=== PATIENT | male | born 1965 | race Hispanic/Latino ===

== ENCOUNTER → 2022-09-21 | Day surgery (SDC) | payer OTHER ==
[~2022-09-21] MED LIST: Albumin 25% 100 ML ONE; Lidocaine 1% PF 5 ML VIAL ONE; Sodium Bicarbonate 2.5 MEQ/5 ML VIAL ONE
[2022-09-21 11:00] LABS: INR-International Normal Ratio 1.4; PTT 33.3 sec (22.0-33.0); Prothrombin Time 14.9 sec (9.5-12.1)
== END ==
LOC: CSHULT 09:24
PROVIDERS: ATTEND Internal Medicine Gastroenterology
PROC: 0W9G3ZZ Drainage of Peritoneal Cavity, Percutaneous Approach (ICD-10-PCS; principal; 2022-09-21)
DX: R18.8 Other ascites (principal)
CPT/HCPCS: 49083; 82945; 84157; 85610; 85730; 87070; 87205; P9047

== ENCOUNTER 2022-09-27 08:17 | Day surgery (SDC) | payer OTHER ==
[2022-09-24 10:53] VITALS: BMI 28.3
[2022-09-27] MEDS ORDERED: cefTRIAXone (ROCEPHIN) 1 GM VIAL ONE (10:09)
[2022-09-27] MEDS ORDERED: PROPOFOL 40 ML ONE (10:54)
== END 2022-09-27 12:20 | disposition home or self-care (01) ==
LOC: CSHSDC 08:17
PROVIDERS: ATTEND Internal Medicine Gastroenterology
PROC: 0DB78ZX Excision of Stomach, Pylorus, Via Natural or Artificial Opening Endoscopic, Diagnostic (ICD-10-PCS; principal; 2022-09-27)
DX: K76.6 Portal hypertension (principal); K31.89 Other diseases of stomach and duodenum; K25.9 Gastric ulcer, unspecified as acute or chronic, without hemorrhage or perforation; K70.31 Alcoholic cirrhosis of liver with ascites; F10.10 Alcohol abuse, uncomplicated; N18.9 Chronic kidney disease, unspecified; Z79.899 Other long term (current) drug therapy; Y90.9 Presence of alcohol in blood, level not specified
CPT/HCPCS: 88305; J0696; J2704

== ENCOUNTER 2023-08-02 09:33 | Outpatient (CLI) | payer MEDICARE, MEDICAID | END 2023-08-02 09:34 | disposition home or self-care (01) | LOC: CSHWCC 09:33 | PROVIDERS: ATTEND Nurse Practitioner Family | DX: L98.499 Non-pressure chronic ulcer of skin of other sites with unspecified severity (principal); N18.6 End stage renal disease; K74.60 Unspecified cirrhosis of liver; K46.9 Unspecified abdominal hernia without obstruction or gangrene | CPT/HCPCS: 99213; G0463 ==

== ENCOUNTER 2023-08-04 13:06 | Outpatient (CLI) | payer MEDICARE | END 2023-08-04 13:07 | disposition home or self-care (01) | LOC: CSHWCC 13:06 | PROVIDERS: ATTEND Nurse Practitioner Family | DX: L98.499 Non-pressure chronic ulcer of skin of other sites with unspecified severity (principal); K74.60 Unspecified cirrhosis of liver; K46.9 Unspecified abdominal hernia without obstruction or gangrene; N18.6 End stage renal disease | CPT/HCPCS: 99211; G0463 ==

== ENCOUNTER 2023-11-01 09:29 | Outpatient (CLI) | payer MEDICARE, MEDICAID | END 2023-11-01 09:30 | disposition home or self-care (01) | LOC: CSHWCC 09:29 | PROVIDERS: ATTEND Nurse Practitioner Family | DX: Z48.23 Encounter for aftercare following liver transplant (principal); T81.31XD Disruption of external operation (surgical) wound, not elsewhere classified, subsequent encounter; N18.6 End stage renal disease; K74.60 Unspecified cirrhosis of liver | CPT/HCPCS: 99213; G0463 ==